=== PATIENT | male | born 1970 | race Caucasian/White ===

== ENCOUNTER → 2016-03-18 | Outpatient (CLI) | payer OTHER ==
[2015-02-16 10:38] VITALS: BP 110/52
[~2016-03-18] MED LIST: IBUP-1027 PO; LISI-334 PO; LOVA20TA2 PO; TAMS0.4C97 PO
[2016-03-18 15:32] LABS: ALBUMIN 4.2 g/dL (3.4-5.0); DIRECT BILIRUBIN 0.1 mg/dL (0.0-0.2); TOTAL BILIRUBIN 0.5 mg/dL (0.2-1.0); TOTAL PROTEIN 7.6 g/dL (6.4-8.2)
== END | disposition home or self-care (01) ==
LOC: LAB 14:23
PROVIDERS: ATTEND Internal Medicine Cardiovascular Disease
DX: E78.5 Hyperlipidemia, unspecified (principal); N40.0 Benign prostatic hyperplasia without lower urinary tract symptoms
CPT/HCPCS: 36415; 80061; 80076; G0103

== ENCOUNTER → 2016-11-23 | Day surgery (SDC) | payer OTHER ==
[~2016-11-23] MED LIST changes: +CRESTOR20 MG PO; +HYDROmorphone 2 MG/ML VIAL IV PRN; +IV RINGERS,LACTATED 1000ML 1,000 ML IV SCH; +LIDOCAINE 1% PF 2 ML VIAL. ID PRN; +MORPHINE SULFATE 4 MG/ML DISP.SYRIN. IV PRN; +ONDANSETRON PF 4 MG/2 ML VIAL. IV PRN; +PROCHLORPERAZINE 10 MG/2 ML VIAL. IV PRN; +PROPOFOL 20 ML IV ONE; +TADA5TAB PO; +fentaNYL PF VIAL 100 MCG/2 ML VIAL IV PRN
[2016-11-23 08:46] VITALS: BP 111/69
== END | disposition home or self-care (01) ==
LOC: ENDOS 06:35
PROVIDERS: ATTEND Internal Medicine Gastroenterology
DX: K29.50 Unspecified chronic gastritis without bleeding (principal); E78.00 Pure hypercholesterolemia, unspecified; I10 Essential (primary) hypertension; J45.909 Unspecified asthma, uncomplicated; K21.9 Gastro-esophageal reflux disease without esophagitis; M19.91 Primary osteoarthritis, unspecified site; Z86.69 Personal history of other diseases of the nervous system and sense organs; Z87.442 Personal history of urinary calculi; Z98.890 Other specified postprocedural states; Z87.39 Personal history of other diseases of the musculoskeletal system and connective tissue
CPT/HCPCS: 43235; J2704

== ENCOUNTER → 2016-12-09 | Outpatient (CLI) | payer OTHER ==
[~2016-12-09] VITALS: Ht 182.9 cm; Wt 90.7 kg
[~2016-12-09] MED LIST changes: +LIDOCAINE 2% PF Vial for OR 5 ML VIAL. ONE; +MORPHINE SULFATE 2 MG/ML DISP.SYRIN. IV PRN; -MORPHINE SULFATE 4 MG/ML DISP.SYRIN. IV PRN; +SINCALIDE 1.8 MCG in IV NORMAL SALINE 50ML 30 ML IV ONE
--- NOTE | 2016-12-09 08:34 | RAD ---
Indication epigastric pain. Limited ultrasound examination was performed. The examination was targeted to the right upper quadrant. The gallbladder appears normal. The visualized pancreas appears normal although the distal body and tail were obscured. The visualized inferior vena cava and abdominal aorta appear unremarkable. No liver abnormality was seen. The right kidney appeared unremarkable. The common bile duct diameter of approximately 3 mm is normal. IMPRESSION: Unremarkable right upper quadrant ultrasound exam
--- NOTE | 2016-12-09 11:23 | RAD ---
Indication abdominal pain and nausea. Hepatobiliary scan was performed. 5.5 mCi of technetium labeled Choletec was administered. 1.8 mcg of CCK was diluted in saline and administered over several minutes. Following the CCK administration a gallbladder ejection fraction calculation was made. There is normal uptake of the radiopharmaceutical in the liver. Activity is seen early in the biliary system and gallbladder. Following the administration of CCK the estimated gallbladder ejection fraction was in excess of 90%. IMPRESSION: Normal study
[2016-12-09 12:07] VITALS: BP 135/89
== END | disposition home or self-care (01) ==
LOC: SURG 07:14
PROVIDERS: ATTEND Internal Medicine Gastroenterology
DX: R10.11 Right upper quadrant pain (principal); R11.0 Nausea
CPT/HCPCS: 76705; 78226; 96374; 96375; A9537; J2704; J2805; J2001